=== PATIENT | female | born 1940 | race Caucasian/White ===

== ENCOUNTER 2017-05-26 01:43 | Emergency (ER) | payer OTHER, MEDICARE ==
[~2017-05-26] VITALS: Ht 152.4 cm; Wt 80.7 kg
--- NOTE | 2017-05-26 01:59 | ED DYSPNEA/ASTHMA COMPLAINT ---
History of Present Illness General Chief Complaint: Dyspnea (COPD, CHF, Other) Stated Complaint: SOB Source: patient, family, old records, EMS Exam Limitations: no limitations Vital Signs & Intake/Output Vital Signs & Intake/Output Vital Signs Date Time Temp Pulse Resp B/P B/P Pulse O2 O2 Flow FiO2 Mean Ox Delivery Rate 05/26 1520 Nasal 3.0L Cannula 05/26 1518 98.7 75 20 134/63 96 Nasal 3.0L Cannula 05/26 1356 98.4 58 16 138/60 97 Nasal 3.0L Cannula 05/26 1118 Nasal 3.0L Cannula 05/26 1019 97.7 59 20 114/72 05/26 1019 97.7 59 20 114/72 05/26 1019 97.7 59 20 114/72 05/26 0939 97.7 59 20 114/72 98 Nasal 3.0L Cannula 05/26 0705 98.6 54 18 116/57 99 Nasal 3.0L Cannula 05/26 0613 97 Nasal 3.0L Cannula 05/26 0351 18 97 Nasal 3.0L Cannula 05/26 0149 95 Room Air 05/26 0148 96.1 61 20 152/67 95 Room Air Allergies Coded Allergies: Penicillins (RASH 05/26/17) codeine (NAUSEA 05/26/17) Triage Note: PT BIBA FROM HOME C/O COPD EXACERBATION. PER MEDIC PT WAS AT HOME, BASELINE RA, AND LOW 90'S, PT PLACED ON 6L NC UP TO 1005 PER MEDIC. PT [facility]. PT A&0X3. PT STATES AMBULATES AT HOME WITH WALKER Triage Nurses Notes Reviewed? yes HPI: Patient has COPD but is not on home O2. Patient states that her admissions nurse told her that she needed to see a meter technician because he felt that she might need home oxygen. Patient does have a pulse ox monitor home. Patient states that throughout the day her pulse ox is right in the 70s and 80s. She was getting ready for bed and felt short of breath and she checked her pulse ox goes down into the 60s and her heart rate was down into the 40s. Patient then began to feel a little chest tightness. Patient called 911. Patient used her inhaler. A few seconds after using her inhaler the chest tightness went away and it has not come back. Chest tightness and total lasted approximately 5-10 minutes. There is no radiation. The tightness was central. She rated it as mild on the pain scale. Patient denies any cough. There are no fevers or chills. There is no orthopnea. There is slight dyspnea on exertion. (Melissa PATEL,Ricardo Garrett) Reconcile Medications Albuterol Sulfate (Proair Hfa) 90 MCG HFA.AER.AD 2 PUF INH Q4-6 PRN PRN ASTHMA (Reported) Amlodipine Besylate 10 MG TABLET 1 TAB PO DAILY HTN (Reported) Apixaban (Eliquis) 5 MG TABLET 1 TAB PO BID BLOOD THINNER (Reported) Cholecalciferol (Vitamin D3) (Vitamin D) 2,000 UNIT CAPSULE 1 CAP PO DAILY SUPPLEMENT (Reported) Metoprolol Succ XL (Toprol XL) 100 MG TAB.ER.24H 1 TAB PO DAILY HTN (Reported ) Mirabegron (Myrbetriq) 50 MG TAB.ER.24H 1 TAB PO DAILY OVERACTIVE BLADDER ( Reported) Pantoprazole Sodium 40 MG TABLET.DR 1 TAB PO DAILY GERD (Reported) Rosuvastatin Calcium (Crestor) 10 MG TABLET 1 TAB PO DAILY HYPERLIPIDEMIA ( Reported) Sertraline HCl 25 MG TABLET 1 TAB PO DAILY MENTAL HEALTH (Reported) Valsartan 80 MG TABLET 1 TAB PO DAILY HTN (Reported) (Ivon PATEL,Avril) Past History Travel History Traveled to [place] past 21 day No Medical History Any Pertinent Medical History? see below for history Cardiovascular: aflutter, hypertension, hyperlipidemia, COPD Respiratory: obstructive sleep apnea Surgical History Surgical History: non-contributory Psychosocial History What is your primary language Barbadian Tobacco Use: Quit >30 days ago ETOH Use: denies use Illicit Drug Use: denies illicit drug use Family History Hx Contributory? No (Ricardo Torres MD) Review of Systems Review of Systems Constitutional: Reports: no symptoms. EENTM: Reports: no symptoms. Respiratory: Reports: see HPI, short of breath. Cardiovascular: Reports: see HPI, chest pain. GI: Reports: no symptoms. Genitourinary: Reports: no symptoms. Musculoskeletal: Reports: no symptoms. Skin: Reports: no symptoms. Neurological/Psychological: Reports: no symptoms. Hematologic/Endocrine: Reports: no symptoms. Immunologic/Allergic: Reports: no symptoms. All Other Systems: Reviewed and Negative (Ricardo Torres MD) Physical Exam Physical Exam General Appearance: well developed/nourished, alert, awake, anxious, mild distress Head: atraumatic, normal appearance Eyes: Bilateral: PERRL, EOMI. Ears, Nose, Throat: normal pharynx, normal ENT inspection, hearing grossly normal Neck: normal inspection, supple, full range of motion Respiratory: normal breath sounds, chest non-tender, no respiratory distress, lungs clear Cardiovascular: regular rate/rhythm, normal peripheral pulses Gastrointestinal: normal bowel sounds, soft, non-tender Extremities: normal inspection, normal capillary refill, normal range of motion, no edema Neurologic/Psych: no motor/sensory deficits, awake, alert, oriented x 3, normal mood/affect Skin: intact, normal color, warm/dry Lymphatic: no anterior cervical gretchen Core Measures ACS in differential dx? Yes CVA/TIA Diagnosis No Sepsis Present: No Sepsis Focused Exam Completed? No (Melissa PATEL,Ricardo Garrett) Progress Differential Diagnosis: asthma, AMI, bronchitis, CHF, COPD, pulmonary embolism, pneumonia Plan of Care: Orders Procedure Date/time Status Heart Healthy Diet 05/26 B Active CASE MANAGEMENT CONSULT 05/26 0806 Active ARTERIAL BLOOD GAS (GEN) 05/26 0301 Complete Telemetry/Sales Administration Manager 05/26 0159 Active TROPONIN LEVEL 05/26 0159 Complete COMPREHENSIVE METABOLIC PANEL 05/26 0159 Complete CBC WITHOUT DIFFERENTIAL 05/26 158 Complete EKG 05/26 0151 Active Laboratory Tests 05/26/17 0310: pH 7.35, pCO2 54 H, pO2 99, HCO3 30 H, ABG O2 Sat (Measured) 97.0, P-50 (Temp Corrected) N, Carboxyhemoglobin 0.3 L, O2 Concentration % 3L, O2 Delivery Method N/C, Phlebotomy Draw Site RIGHT BRACHIAL 05/26/17 0210: Anion Gap 13, Estimated GFR > 60, BUN/Creatinine Ratio 48.3 H, Glucose 118 H, Calcium 10.1, Total Bilirubin 0.4, AST 19, ALT 19, Alkaline Phosphatase 48, Troponin I < 0.01, Total Protein 6.5, Albumin 4.1, Globulin 2.4, Albumin/ Globulin Ratio 1.7, CBC w Diff NO MAN DIFF REQ, RBC 4.70, MCV 84.3, MCH 26.8 L, MCHC 31.8 L, RDW 15.1 H, MPV 8.2, Gran % 65.5, Lymphocytes % 23.9, Monocytes % 5.4, Eosinophils % 5.0, Basophils % 0.2, Absolute Granulocytes 4.0, Absolute Lymphocytes 1.5, Absolute Monocytes 0.3, Absolute Eosinophils 0.3, Absolute Basophils 0 05/26/2017 7:16:03 AM Patient's identity by Dr. Torres, pending case management for oxygen at home. (Avril Del Valle MD) Diagnostic Imaging: Viewed by Me: Radiology Read. Discussed w/RAD: Radiology Read. Pre-Hospital EKG: NSR, nonspecific ST T wave chg Initial ED EKG: NSR, nonspecific ST T wave chg Rhythm Strip: normal sinus rhythm Hand-Off Endorsed To: Avril Del Valle MD Endorsed Time: 0700 Pending: consult (CASEMANAGEMENT) Comments: Patient desaturated to 85% while laying in the bed. Her lungs remain clear to auscultation. At this point the patient would benefit from being set up with home oxygen. (Ricardo Torres MD) Hand-Off Endorsed To: Deshawn Sprague DO Endorsed Time: 1506 Pending: consult (OXYGEN DELIVERY) (Avril Del Valle MD) Departure Departure Disposition: HOME OR SELF CARE Condition: Stable Clinical Impression Primary Impression: COPD (chronic obstructive pulmonary disease) Referrals: Raine Eugene MD (PCP/Family) Departure Forms: Customer Survey General Discharge Information (Ricardo Torres MD) Departure Comments 05/26/17 The patient was discharged by Avril Del Valle MD. Not seen by me. (Deshawn Sprague DO) Critical Care Note Critical Care Note Critical Care Time: non-applicable (Ricardo Torres MD) ED Attending Observation Initial Observation Note: I have seen and personally examined ALEJANDRO CREWS on 05/26/17 at 0212. I agree with the current emergency department documentation. The disposition (admission or discharge) is uncertain at this time, she needs a period of observation for the following reason(s): The ED Nurse caring for this patient has been personally informed as to what the patient is being observed for. (Ricardo Torres MD) Critical Care Note Critical Care Time: non-applicable (Ricardo Torres MD) ED Attending Observation Initial Observation Note: I have seen and personally examined ALEJANDRO CREWS on 05/26/17 at 0212. I agree with the current emergency department documentation. The disposition (admission or discharge) is uncertain at this time, she needs a period of observation for the following reason(s): The ED Nurse caring for this patient has been personally informed as to what the patient is being observed for. (Melissa PATEL,Ricardo Garrett)
[2017-05-26 02:22] LABS: ABSOLUTE BASOPHIL COUNT 0 /CUMM (0.0-0.2); ABSOLUTE EOSINOPHIL COUNT 0.3 /CUMM (0.0-0.7); ABSOLUTE LYMPH COUNT 1.5 /CUMM (1.2-3.4); ABSOLUTE MONOCYTE COUNT 0.3 /CUMM (0.10-0.60); BASOPHIL % 0.2 % (0.0-2.0); GRANULOCYTE % 65.5 % (42.2-75.2); HEMATOCRIT 39.6 % (37-47); MEAN CORPUSCULAR HGB 26.8 PG (27.0-31.0); MEAN CORPUSCULAR HGB CONC 31.8 G/DL (33.0-37.0); MEAN CORPUSCULAR VOLUME 84.3 FL (81.0-99.0); MEAN PLATELET VOLUME 8.2 FL (7.4-10.4); PLATELET COUNT 217 /CUMM (130-400); RBC DISTRIBUTION WIDTH 15.1 % (11.5-14.5); WHITE BLOOD CELL COUNT 6.1 /CUMM (4.8-10.8)
--- NOTE | 2017-05-26 03:13 | RADIOLOGY REPORT ---
EXAMINATION: XR PORTABLE CHEST CLINICAL INFORMATION: Shortness of breath. COMPARISON: None TECHNIQUE: Portable frontal view of the chest was obtained. 2:20 AM FINDINGS: No significant abnormality is noted involving the heart, lungs, mediastinum, bony thorax or soft tissues. Surgical clips in the right axilla. IMPRESSION: Unremarkable examination.
[2017-05-26] MEDS ORDERED: SERTRALINE HCL25 MG PO (06:15)
[2017-05-26] MEDS ORDERED: ELIQUIS5 M1 PO (06:16)
[2017-05-26] MEDS ORDERED: AMLODIPINE BESY10 M1 PO (06:16)
[2017-05-26] MEDS ORDERED: PROAIR HFA8.5 GM INH (06:16)
[2017-05-26] MEDS ORDERED: PANTOPRAZOLE SO40 M1 PO (06:16)
[2017-05-26] MEDS ORDERED: VALSARTAN80 M1 PO (06:17)
[2017-05-26] MEDS ORDERED: CRESTOR10 M1 PO (06:18)
[2017-05-26] MEDS ORDERED: MYRBETRIQ50 M1 PO (06:19)
[2017-05-26] MEDS ORDERED: VITAMIN D2000 UNIT PO (06:20)
[2017-05-26] MEDS ORDERED: TOPROL XL100 M1 PO (06:20)
[2017-05-26 15:18] VITALS: BP 134/63
== END 2017-05-26 15:30 ==
LOC: ERH 01:43
PROVIDERS: Emergency Medicine
DX: J44.9 Chronic obstructive pulmonary disease, unspecified (principal); Z87.891 Personal history of nicotine dependence; R07.89 Other chest pain
CPT/HCPCS: 71045; 93005; 93010